=== PATIENT | female | born 1985 | race Caucasian/White ===

== ENCOUNTER 2024-04-07 16:21 | Inpatient (IN) ==
[2024-04-07 17:02] LABS: Activated Partial Thrombo Time 31.3 seconds (26.0-38.0); INR 1.15 (0.83-1.13)
[2024-04-07 17:03] LABS: Hematocrit 37.4 % (35-45); Hemoglobin 12.8 g/dL (11.5-14.3); Mean Corpuscular Hgb Conc 34.2 g/dL (31-36); Mean Corpuscular Volume 93.6 fL (80-97); Mean Platelet Volume 8.4 fL (7.5-11.2); Platelet Count 235 10^3/uL (150-450); Red Cell Distribution Width 12.4 % (12-17); White Blood Count 1.4 10^3/uL (3.8-11.8)
[2024-04-07] MEDS: LACTATED RINGERS IV ONE (17:32)
[2024-04-07] MEDS: Cefepime 2 GM in Dextrose 2 GM/50 ML BAG IV ONE (17:32)
[2024-04-07 17:39] LABS: Albumin/Globulin Ratio 1.5 (1-3); C Reactive Protein 182.83 mg/L (<8.01); Calcium 8.7 mg/dL (8.6-10.3); Creatinine, Serum 0.69 mg/dL (0.51-0.95); Globulin 2.7 g/dL (2-4); Potassium 3.7 mmol/L (3.5-5.0); Total Bilirubin 0.6 mg/dL (0.2-1.0); Total Protein 6.7 g/dL (6.4-8.9); eGFR CKD-EPI 113.9 (>60)
[2024-04-07 17:40] LABS: ABS Lymphocytes 0.5 10^3/uL (1.0-4.8); ABS Monocytes 0.9 10^3/uL (0.0-0.9); Eosinophil % 0.9 %; Lymphocyte % 34.9 %; Nucleated Red Blood Cells % 0.1 %/100WBC (0.0-0.8); RBC Morphology Normal (Normal)
[2024-04-07 18:22] LABS: High Sensitivity Troponin 1 Hr 4 pg/mL (<15)
[2024-04-07 19:44] LABS: Urine Appearance Clear; Urine Bilirubin Negative (Negative); Urine Blood Negative (Negative); Urine Color Light-Yellow; Urine Glucose Negative (Negative); Urine Ketones 1+ (Negative); Urine Nitrite Negative (Negative); Urine Protein Negative (Negative); Urine Urobilinogen Negative (Negative)
[2024-04-07] MEDS: NS 0.9% 1000 ml BAG 1,000 ML IV SCH (21:51)
[2024-04-07 22:02] LABS: HIV 4th Generation Nonreactive (Nonreactive)
[2024-04-07] MEDS: Lactated Ringers 1000 ml BAG 1,000 ML IV SCH (23:24)
[2024-04-08] MEDS: Cefepime 2 GM in Dextrose 2 GM/50 ML BAG IV SCH (05:47)
[2024-04-08 06:16] LABS: Hematocrit 34.1 % (35-45); Hemoglobin 11.8 g/dL (11.5-14.3); Mean Corpuscular Hemoglobin 32.1 pg (27-33); Mean Corpuscular Hgb Conc 34.5 g/dL (31-36); Mean Corpuscular Volume 93.1 fL (80-97); Mean Platelet Volume 8.5 fL (7.5-11.2); Platelet Count 191 10^3/uL (150-450); Red Blood Count 3.66 10^6/uL (3.63-4.92); Red Cell Distribution Width 12.2 % (12-17)
[2024-04-08 06:40] LABS: Calcium 8.1 mg/dL (8.6-10.3); Creatinine, Serum 0.58 mg/dL (0.51-0.95); Magnesium 1.5 mg/dL (1.9-2.7); Potassium 3.4 mmol/L (3.5-5.0); eGFR CKD-EPI 118.7 (>60)
[2024-04-08] MEDS: Enoxaparin 40 MG/0.4 ML SYR SUBCUT SCH (06:47)
[2024-04-08 06:54] LABS: ABS Lymphocytes 0.8 10^3/uL (1.0-4.8); ABS Monocytes 1.1 10^3/uL (0.0-0.9); ABS Neutrophils 0.1 10^3/uL (1.5-7.6); Eosinophil % 0.8 %; Lymphocyte % 40.8 %; Nucleated Red Blood Cells % 0.2 %/100WBC (0.0-0.8); RBC Morphology Normal (Normal)
[2024-04-08] MEDS: Fluticasone NASAL SPRAY 50MCG 16 gm SPRAY BTL BOTH NARES SCH (11:52)
[2024-04-09] MEDS: Benzocaine/Menthol LOZ PO PRN (00:55)
[2024-04-09 06:23] LABS: Hematocrit 34.2 % (35-45); Hemoglobin 11.8 g/dL (11.5-14.3); Mean Corpuscular Hgb Conc 34.6 g/dL (31-36); Mean Corpuscular Volume 92.5 fL (80-97); Mean Platelet Volume 8.3 fL (7.5-11.2); Platelet Count 201 10^3/uL (150-450); Red Blood Count 3.69 10^6/uL (3.63-4.92); Red Cell Distribution Width 12.4 % (12-17); White Blood Count 5.1 10^3/uL (3.8-11.8)
[2024-04-09 06:47] LABS: Calcium 8.4 mg/dL (8.6-10.3); Creatinine, Serum 0.53 mg/dL (0.51-0.95); Magnesium 1.7 mg/dL (1.9-2.7); Potassium 3.2 mmol/L (3.5-5.0); eGFR CKD-EPI 121.3 (>60)
[2024-04-09 09:37] LABS: ABS Eosinophils 0.1 10^3/uL (0.0-0.5); ABS Lymphocytes 1.5 10^3/uL (1.0-4.8); ABS Monocytes 1.9 10^3/uL (0.0-0.9); ABS Neutrophils 1.7 10^3/uL (1.5-7.6); Eosinophil % 1.4 %; Lymphocyte % 28.8 %; RBC Morphology Normal (Normal)
[2024-04-09] MEDS: Potassium Chlor 10 meq TAB PO ONE (09:55)
[2024-04-09] MEDS: Magnesium Sulfate 2 gm BAG 2 GM/50 ML BAG IVPB ONE (10:11)
[2024-04-09] MEDS: Magnesium Sulfate IV 1GM/100ML 1 GM/100 ML BAG IV ONE (12:49)
[2024-04-09 17:47] VITALS: BP 123/56
[2024-04-10 10:19] LABS: Cytomegalovirus IgG Antibody Negative (Negative); EBV Capsid Ag IgG Ab Positive (Negative); EBV Capsid Ag IgM Ab Negative (Negative); Epstein-Barr Nuclear Antigen Positive (Negative)
== END 2024-04-09 18:10 | disposition home or self-care (01) | DRG 720 ==
LOC: ED 16:21 → EDHOLD 16:21 → SUATTDRO 19:15 → MED 04-08 11:34
PROVIDERS: ADMIT Student in an Organized Health Care Education/Training Program; ATTEND Internal Medicine